=== PATIENT | male | born 1965 | race Caucasian/White ===

== ENCOUNTER 2024-05-10 10:22 | Observation (INO) | payer BC ==
[~2024-05-10] VITALS: Ht 177.8 cm; Wt 100.1 kg
--- NOTE | 2024-05-10 10:39 | NUR ---
0930- DR. CHAPPELL CALLED THIS [facility] [employer] TO REQUEST DIRECT ADMISSION FOR THIS PATIENT FROM [facility] ER FOR CHOLECYSTITIS. DR. CHAPPELL HAD SPOKE WITH DR. MARADIAGA WHO PLANS TO DO AN ERCP TODAY. DR. THIAGO HERNANDEZ WILL BE THE ADMITTING PHYSICIAN AND PATIENT WILL BE ADMITTED UNDER INPATIENT STATUS. PATIENT WILL BE COMING VIA POV.
[2024-05-10 11:54] VITALS: BP 119/70; PULSE 74; TEMP 97.7
[2024-05-10] MEDS ORDERED: NS 1,000 ML IV SCH (12:00)
[2024-05-10] MEDS ORDERED: Polyethylene Glycol 3350 17 GM PDS PO PRN (12:00)
[2024-05-10] MEDS ORDERED: Acetaminophen 325 MG TAB PO PRN (12:00)
[2024-05-10] MEDS ORDERED: Ondansetron 4 MG/2 ML VIAL IV PRN (12:00)
[2024-05-10] MEDS ORDERED: Docusate Sodium 100 MG CAP PO PRN (12:00)
--- NOTE | 2024-05-10 12:05 | NUR ---
PATIENT ARRIVED TO FLOOR AT 1150AM FROM [place]. VSS. ADMISSION, ASSESSMENT AND MED REC COMPLETED. PATIENT REPORTS NO PAIN AT THIS TIME. NO REQUEST AT TIME. CALL LIGHT IN REACH
[2024-05-10] MEDS ORDERED: PRINIVIL5 MG (12:10)
[2024-05-10] MEDS ORDERED: MOBIC15 MG (12:11)
[2024-05-10] MEDS ORDERED: ALDACTONE 25MG25 M1 (12:11)
[2024-05-10] MEDS ORDERED: DEMADEX 20MG20 M1 (12:12)
[2024-05-10] MEDS ORDERED: TOPROL XL 50MG50 MG PO (12:12)
[2024-05-10] MEDS ORDERED: NITROSTAT0.4 MG/TAB SL (12:13)
[2024-05-10] MEDS ORDERED: ASPIRIN E.C. 8181 MG PO (12:15)
[2024-05-10] MEDS ORDERED: Folic Acid 1 MG TAB PO SCH (12:20)
[2024-05-10] MEDS ORDERED: Mag/Al Hydrox/Simeth Susp 30 ML CUP PO PRN (12:30)
[2024-05-10 12:32] LABS: COLLECTION METHOD CLEAN CATCH
[2024-05-10 12:48] LABS: TRICYCLIC ANTIDEPRESS URINE NEGATIVE (NEGATIVE)
[2024-05-10 12:51] LABS: URINE APPEARANCE CLEAR (CLEAR/HAZY); URINE BLOOD TRACE (NEGATIVE); URINE COLOR Dark Yellow (YELLOW); URINE GLUCOSE NEGATIVE (NEGATIVE); URINE KETONE NEGATIVE (NEGATIVE); URINE NITRATE NEGATIVE (NEGATIVE); URINE PROTEIN(semi-quant) NEGATIVE (NEGATIVE)
[2024-05-10] MEDS ORDERED: Thiamine 100 MG TAB PO SCH (13:00)
[2024-05-10] MEDS ORDERED: PHENobarbital 32.4 MG TABLET PO SCH (14:00)
[2024-05-10] MEDS ORDERED: DUO-KAPS1 CAP PO (14:48)
[2024-05-10] MEDS ORDERED: FOLIC ACID 11 MG/TA1 PO (14:48)
[2024-05-10] MEDS ORDERED: NATURE'S BLEND100 M2 PO (14:48)
[2024-05-10] MEDS ORDERED: AMOXICILLIN 8751 TAB PO (14:49)
[2024-05-10 15:15] VITALS: BP 129/66; PULSE 78; TEMP 99.9
--- NOTE | 2024-05-10 15:41 | NUR ---
SONYA met with patient and Sindy ([phone]) to complete initial assessment for discharge planning. Patient verified taht they live in [place], that he sees Dr. Flavia Marquis as his PCP and uses [facility] without difficulty. Patient denies having any DME. Patient reports to be independent and still working as a correa. Patient admits to history of alcohol comsumption. He states he quit for several months and has recently started back drinking. He states that he will not return to drinking upon returning home and refuses resources for ETOH abuse/recovery. Patient being discharged to home today with to drive. Discharge plan: Home
[2024-05-10] MEDS ORDERED: Multivitamin TAB PO SCH (17:00)
== END 2024-05-10 16:00 | disposition home or self-care (01) ==
LOC: SURG 10:22
PROVIDERS: ADMIT Internal Medicine
DX: K83.09 Other cholangitis (principal); I10 Essential (primary) hypertension; K70.30 Alcoholic cirrhosis of liver without ascites; F10.10 Alcohol abuse, uncomplicated; Y90.9 Presence of alcohol in blood, level not specified; Z79.82 Long term (current) use of aspirin; Z79.899 Other long term (current) drug therapy
CPT/HCPCS: G0378; G0379; J7030